=== PATIENT | female | born 1980 | race Caucasian/White ===

== ENCOUNTER 2016-05-22 08:24 | Inpatient (IN) ==
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
[2016-05-22 11:01] LABS: Basophils # 0.1 K/mcL (0.0-0.2); Basophils % 0.9 %; Eosinophils # 0.3 K/mcL (0.0-0.6); Eosinophils % 2.1 %; Hematocrit 37.4 % (35.3-44.9); Hemoglobin 12.5 g/dL (11.5-15.4); Immature Granulocytes % 0.5 % (0-4); Lymphocytes # 2.5 K/mcL (0.6-4.6); Lymphocytes % 19.4 %; Mean Corpuscular HGB Conc 33.4 g/dL (31.6-35.5); Mean Corpuscular Hemoglobin 31.6 pg (28.0-33.3); Mean Corpuscular Volume 94.4 fL (83.0-100.0); Mean Platelet Volume 9.1 fL (9.4-12.4); Monocytes # 0.9 K/mcL (0.0-1.3); Monocytes % 6.8 %; Neutrophils # 9.1 K/mcL (1.6-8.9); Platelet Count 306 K/mcL (140-400); Red Blood Count 3.96 M/mcL (3.82-4.97); Red Cell Distribution Width 12.6 % (11.5-14.5); Segmented Neutrophils % 70.3 %
[2016-05-22 11:17] LABS: BUN/Creatinine Ratio 16 (6-26); Blood Urea Nitrogen 10 mg/dL (7-20); Calcium 9.1 mg/dL (8.6-10.8); Carbon Dioxide 25 mEq/L (19-29); Chloride 110 mEq/L (98-109); Glucose 94 mg/dL (70-99); Osmolality,Calculated 291 (280-300); Potassium 4.2 mEq/L (3.5-4.5); Sodium 141 mEq/L (136-145); eGFR For African Americans > 60 (> 60); eGFR For Non-African Americans > 60 (> 60)
[2016-05-22 11:19] LABS: Acetaminophen < 1.0 mcg/mL (10-30); Ethanol < 10 mg/dL (0-10); Salicylate < 5.0 mg/dL (15-30)
[2016-05-22 11:38] LABS: Thyroid Stimulating Hormone 4.906 mcIU/mL (0.350-4.840)
[2016-05-22 12:13] LABS: Bilirubin,Urine Negative (Negative); Blood,Urine Negative (Negative); Clarity,Urine Clear (Clear); Color,Urine Yellow (Yellow); Glucose,Urine (UA) Normal (Normal); Ketones,Urine Negative (Negative); Leukocyte Esterase,Urine Negative (Negative); Nitrite,Urine Negative (Negative); PH,Urine 7.5 pH Units (5.0-8.0); Protein,Urine Negative (Neg-Trace); Specific Gravity,Urine 1.013 (1.010-1.025); Urobilinogen,Urine Normal (Normal)
[2016-05-22 12:17] LABS: Amphetamine Screen,Urine Negative ng/mL (Cutoff=1000); Barbiturate Screen,Urine Negative ng/mL (Cutoff=200); Benzodiazepines Screen,Urine Negative ng/mL (Cutoff=200); Cannabinoid Screen,Urine Negative ng/mL (Cutoff = 50); Cocaine Screen,Urine Negative ng/mL (Cutoff= 300); Opiate Screen,Urine Negative ng/mL (Cutoff=300); Phencyclidine Screen,Urine Negative ng/mL (Cutoff=25)
--- NOTE | 2016-05-22 14:02 | Emergency Department Note ---
Disposition Clinical Impression: Sprain of right shoulder joint Qualifiers: Encounter type: initial encounter Shoulder sprain type: unspecified sprain Qualified Code(s): S43.401A - Unspecified sprain of right shoulder joint, initial encounter Disposition: Still a Patient Condition: Good Instructions: Shoulder Sprain (ED) Additional Instructions: Take your medication as prescribed. Maintain the use of the sling is applied in the emergency department until you are able to follow up with the supervisory investigative specialist. Ice may be applied, 20 minutes on, 20 minutes off and time. He was call the supervisory investigative specialist office to schedule for the next available appointment. Contact information for their office can be found within this discharge packet. Prescriptions: Cyclobenzaprine HCl 10 mg PO TID #15 tablet Naproxen [Naprosyn] 500 mg PO BID PRN #20 tablet PRN Reason: Pain Referrals: NO,PCP [Primary Care Provider] - Forms: ED Satisfaction Letter General Adult HPI - General Chief complaint: ED Extremity Injury, Upper Stated complaint: R shoulder injury Time Seen by Provider: 05/22/16 08:41 Source: patient Limitations: no limitations - History of Present Illness Pain Scale: 5 - Related Data Previous Rx's Medication Instructions Recorded Cyclobenzaprine HCl 10 mg PO TID #15 tablet 05/22/16 Naproxen [Naprosyn] 500 mg PO BID PRN #20 tablet 05/22/16 Allergies Allergy/AdvReac Type Severity Reaction Status Date / Time aspirin Allergy Hives Verified 05/22/16 08:33 morphine AdvReac Vomiting Verified 05/22/16 08:33 sertraline [From Zoloft] AdvReac Vomiting Verified 05/22/16 08:33 tramadol AdvReac Vomiting Verified 05/22/16 08:33 Constitutional: Denies: fever, chills, weakness, weight change Cardiovascular: Denies: chest pain, palpitations, dyspnea on exertion, edema, syncope Respiratory: Denies: cough, dyspnea, wheezes, hemoptysis, stridor Gastrointestinal: Denies: abdominal pain, nausea, vomiting, diarrhea, constipation, hematemesis, melena, hematochezia Musculoskeletal: Reports: as per HPI, arthralgia (Right shoulder pain) Integumentary: Denies: rash, abrasion, lesions Neurological: Denies: headache, weakness, numbness, paresthesias, confusion, abnormal gait, vertigo Psychiatric: Denies: anxiety, depression, suicidal thoughts, homicidal thoughts , auditory hallucinations, visual hallucinations Endocrine: Denies: fatigue Past Medical History - Past Medical History Medical history: Reports: other Psychiatric history: Reports: no psych history SOCIAL WORK PROFESSOR history: Reports: no SOCIAL WORK PROFESSOR history - Social History Smoking Status: Current every day smoker Smokeless Tobacco Status: No Alcohol use: Reports: occasionally Drug use: Reports: none Physical Exam - General Limitations: no limitations General appearance: alert, in no apparent distress Course - Reevaluation(s) Reevaluation #1: I saw the patient with the nurse practitioner, Tesfaye. Patient initially came in for shoulder pain but then expressed some suicidal homicidal ideations. She is medically cleared. Psychiatry came and saw the patient and they are going to admit her to the hospital. Time: 14:01 Vital Signs Temperature 98.1 F 05/22/16 08:29 Pulse Rate 95 05/22/16 08:29 Respiratory Rate 16 05/22/16 08:29 Blood Pressure 113/78 05/22/16 08:29 O2 Sat by Pulse Oximetry 99 05/22/16 08:29 Temperature 98.1 F 05/22/16 08:29 Pulse Rate 95 05/22/16 08:29 Respiratory Rate 0 05/22/16 10:00 Blood Pressure 0/0 05/22/16 10:00 O2 Sat by Pulse Oximetry 99 05/22/16 08:29 Oxygen Delivery Oxygen Delivery Room Air Medical Decision Making - Lab Data Result diagrams: 05/22/16 10:55 05/22/16 10:55 Lab Results 05/22/16 05/22/16 05/22/16 Range/Units 10:55 10:55 12:00 WBC 12.9 H (4.3-11.1) K/mcL RBC 3.96 (3.82-4.97) M/mcL Hgb 12.5 (11.5-15.4) g/dL Hct 37.4 (35.3-44.9) % MCV 94.4 (83.0-100.0) fL MCH 31.6 (28.0-33.3) pg MCHC 33.4 (31.6-35.5) g/dL RDW 12.6 (11.5-14.5) % Plt Count 306 (140-400) K/mcL MPV 9.1 L (9.4-12.4) fL Immature Gran % 0.5 (0-4) % Seg Neutrophils % 70.3 % Lymphocytes % 19.4 % Monocytes % 6.8 % Eosinophils % 2.1 % Basophils % 0.9 % Neutrophils # 9.1 H (1.6-8.9) K/mcL Lymphocytes # 2.5 (0.6-4.6) K/mcL Monocytes # 0.9 (0.0-1.3) K/mcL Eosinophils # 0.3 (0.0-0.6) K/mcL Basophils # 0.1 (0.0-0.2) K/mcL Sodium 141 (136-145) mEq/L Potassium 4.2 (3.5-4.5) mEq/L Chloride 110 H (98-109) mEq/L Carbon Dioxide 25 (19-29) mEq/L BUN 10 (7-20) mg/dL Creatinine 0.63 (0.57-1.11) mg/dL Est GFR ( Amer) > 60 (> 60) Est GFR (Non-Af Amer) > 60 (> 60) BUN/Creatinine Ratio 16 (6-26) Glucose 94 (70-99) mg/dL Calculated Osmolality 291 (280-300) Calcium 9.1 (8.6-10.8) mg/dL TSH 4.906 H (0.350-4.840) mcIU/mL Urine Color Yellow (Yellow) Urine Clarity Clear (Clear) Urine pH 7.5 (5.0-8.0) pH Units Ur Specific [place] 1.013 (1.010-1.025) Urine Protein Negative (Neg-Trace) mg/dL Urine Glucose (UA) Normal (Normal) mg/dL Urine Ketones Negative (Negative) mg/dL Urine Blood Negative (Negative) Urine Nitrite Negative (Negative) Urine Bilirubin Negative (Negative) Urine Urobilinogen Normal (Normal) mg/dL Ur Leukocyte Esterase Negative (Negative) Urine Test (Negative) Salicylates < 5.0 L (15-30) mg/dL Urine Opiates Screen (Euqxcp=075) ng/mL Acetaminophen < 1.0 L (10-30) mcg/mL Ur Barbiturates Screen (Membaz=510) ng/mL Ur Phencyclidine Scrn (Cutoff=25) ng/mL Ur Amphetamines Screen (Rwtkus=6395) ng/mL U Benzodiazepines Scrn (Cozemc=875) ng/mL Urine Cocaine Screen (Cutoff= 300) ng/mL U Marijuana (THC) Screen (Cutoff = 50) ng/mL Ethyl Alcohol < 10 (0-10) mg/dL 05/22/16 05/22/16 Range/Units 12:00 12:00 WBC (4.3-11.1) K/mcL RBC (3.82-4.97) M/mcL Hgb (11.5-15.4) g/dL Hct (35.3-44.9) % MCV (83.0-100.0) fL MCH (28.0-33.3) pg MCHC (31.6-35.5) g/dL RDW (11.5-14.5) % Plt Count (140-400) K/mcL MPV (9.4-12.4) fL Immature Gran % (0-4) % Seg Neutrophils % % Lymphocytes % % Monocytes % % Eosinophils % % Basophils % % Neutrophils # (1.6-8.9) K/mcL Lymphocytes # (0.6-4.6) K/mcL Monocytes # (0.0-1.3) K/mcL Eosinophils # (0.0-0.6) K/mcL Basophils # (0.0-0.2) K/mcL Sodium (136-145) mEq/L Potassium (3.5-4.5) mEq/L Chloride (98-109) mEq/L Carbon Dioxide (19-29) mEq/L BUN (7-20) mg/dL Creatinine (0.57-1.11) mg/dL Est GFR ( Amer) (> 60) Est GFR (Non-Af Amer) (> 60) BUN/Creatinine Ratio (6-26) Glucose (70-99) mg/dL Calculated Osmolality (280-300) Calcium (8.6-10.8) mg/dL TSH (0.350-4.840) mcIU/mL Urine Color (Yellow) Urine Clarity (Clear) Urine pH (5.0-8.0) pH Units Ur Specific [place] (1.010-1.025) Urine Protein (Neg-Trace) mg/dL Urine Glucose (UA) (Normal) mg/dL Urine Ketones (Negative) mg/dL Urine Blood (Negative) Urine Nitrite (Negative) Urine Bilirubin (Negative) Urine Urobilinogen (Normal) mg/dL Ur Leukocyte Esterase (Negative) Urine Test Negative (Negative) Salicylates (15-30) mg/dL Urine Opiates Screen Negative (Otudnp=597) ng/mL Acetaminophen (10-30) mcg/mL Ur Barbiturates Screen Negative (Sebxnz=763) ng/mL Ur Phencyclidine Scrn Negative (Cutoff=25) ng/mL Ur Amphetamines Screen Negative (Ilrsjc=8431) ng/mL U Benzodiazepines Scrn Negative (Wmymss=582) ng/mL Urine Cocaine Screen Negative (Cutoff= 300) ng/mL U Marijuana (THC) Screen Negative (Cutoff = 50) ng/mL Ethyl Alcohol (0-10) mg/dL Attestation Statement - Attestation Attestation: I, Dr. Arce, examined this patient [id number] and my medical decision- making was reviewed with Tesfaye, nurse practitioner. I agree with the documented findings, disposition and treatment plan as described except to the extent set forth below. Please see my progress note for details.
[2016-05-22] MEDS ORDERED: hydrOXYzine pamoate 25 MG CAPSULE PO PRN (15:07)
[2016-05-22] MEDS ORDERED: traZODone 50 MG TABLET PO PRN (15:07)
[2016-05-22] MEDS ORDERED: diazePAM 10 MG TABLET PO PRN (15:16)
[2016-05-22] MEDS ORDERED: *HR* LORazepam 2 MG/ML VIAL IM PRN (18:26)
[2016-05-22] MEDS ORDERED: *HR* LORazepam 1 MG TABLET PO PRN (18:26)
[2016-05-22] MEDS ORDERED: Haloperidol Lactate 5 MG/ML VIAL IM PRN (18:26)
[2016-05-22] MEDS ORDERED: MOM Conc 10 ML UD.LIQ PO PRN (18:26)
[2016-05-22] MEDS ORDERED: Mag Hydrox/Al Hydrox/Simeth 30 ML UDC PO PRN (18:26)
[2016-05-22] MEDS: Acetaminophen 325 MG TABLET PO PRN (18:31)
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
[2016-05-23] MEDS: Acetaminophen 325 MG TABLET PO PRN (12:33)
[2016-05-23] MEDS: Mirtazapine 15 MG TABLET PO SCH (20:02)
--- NOTE | 2016-05-24 13:24 | Psychiatry Progress Note ---
Date of Encounter: 05/24/16 Time of Encounter: 12:00 Subjective Interval history: Patient seen today for follow-up. She continues to report depression. She has fleeting suicidal ideation with no plan. Patient states that she slept well last night but is very sleepy during the interview as well. She denies side effects of her medications. She denies signs of withdrawal from alcohol. Review of Systems Psychiatric: Reports: depression, anxiety, suicidal ideation, anhedonia, difficulty concentrating, hopelessness. Denies: abnormal sleep pattern, auditory hallucinations, visual hallucinations Objective: Exam Patient orientation: Yes Person, Yes Time, Yes Place Level of alertness: Sedated Patient appearance: Unkempt Behavior: cooperative Psychomotor activity: Normal Eye contact: Minimal Contact Mood description: Depressed Affect description: congruent with mood, blunted, dysphoric Speech pattern: Normal rate, Normal rhythm, Normal tone Speech volume: Normal Thought process: Intact Thought content: Yes Intact, Yes Suicidal ideation Perceptual disturbances: No Auditory hallucinations, No Visual hallucinations Judgment: Limited Insight: Minimal Results - Vital Signs Vital Signs: Temp Pulse Resp BP Pulse Ox 99.4 F 99 16 106/63 99 05/24/16 12:00 05/24/16 12:00 05/24/16 12:00 05/24/16 12:00 05/22/16 08:29 Assessment and Plan (1) Major depressive disorder, recurrent severe without psychotic features Current visit: Yes Status: Acute Plan: Continue hospitalization, Close observation, Suicide Precautions per unit protocol, Encourage participation in unit milieu, Group Therapy, Monitor sleep, Monitor appetite Additional Plan: Continue current medications for now. The patient continues to be sleepy throughout the day we will decrease dosages to see if this improves. Encourage appropriate sleep hygiene. She has not been given when necessary Valium. Risks, benefits, side effects, alternatives discussed w/pt: Yes Patient agreeable to treatment: Yes (2) Anxiety Current visit: Yes Status: Acute Plan: Continue hospitalization, Close observation, Suicide Precautions per unit protocol, Encourage participation in unit milieu, Group Therapy, Monitor sleep, Monitor appetite Additional Plan: Vistaril as needed. Risks, benefits, side effects, alternatives discussed w/pt: Yes Patient agreeable to treatment: Yes (3) Alcohol dependence Current visit: Yes Status: Acute Additional Plan: No withdrawal symptoms today. Patient has not required as necessary for withdrawal. Continue to monitor vitals. Risks, benefits, side effects, alternatives discussed w/pt: Yes Patient agreeable to treatment: Yes Qualifiers: Substance use status: uncomplicated Qualified Code(s): F10.20 - Alcohol dependence, uncomplicated (4) Methamphetamine abuse Current visit: Yes Status: Acute Risks, benefits, side effects, alternatives discussed w/pt: Yes Patient agreeable to treatment: Yes Consult Discharge Plan - Plan Referrals: NO,PCP [Primary Care Provider] -
[2016-05-24] MEDS: Mirtazapine 15 MG TABLET PO SCH (20:52)
[2016-05-24] MEDS: Acetaminophen 325 MG TABLET PO PRN (21:15)
--- NOTE | 2016-05-25 10:00 | Discharge Summary ---
Date of Encounter: 05/25/16 Time of Encounter: 09:00 Diagnosis - Discharge Diagnosis (1) Major depressive disorder, recurrent severe without psychotic features Priority: Primary Status: Acute (2) Anxiety Priority: Secondary Status: Acute (3) Alcohol dependence Priority: Secondary Status: Acute Qualifiers: Substance use status: uncomplicated Qualified Code(s): F10.20 - Alcohol dependence, uncomplicated (4) Methamphetamine abuse Priority: Secondary Status: Acute Medications - Discharge Medications Prescriptions: HydrOXYzine Pamoate 50 mg PO TID PRN #90 capsule PRN Reason: Anxiety Mirtazapine [Remeron] 15 mg PO HS #30 tablet Prazosin [Minipress] 3 mg PO HS #90 capsule Cyclobenzaprine HCl 10 mg PO TID #15 tablet 05/22/16 [Rx] Naproxen [Naprosyn] 500 mg PO BID PRN #20 tablet 05/22/16 [Rx] HydrOXYzine Pamoate 50 mg PO TID PRN #90 capsule 05/25/16 [Rx] Mirtazapine [Remeron] 15 mg PO HS #30 tablet 05/25/16 [Rx] Prazosin [Minipress] 3 mg PO HS #90 capsule 05/25/16 [Rx] Allergies aspirin Allergy (Verified 05/22/16 08:33) Hives adhesive tape Adverse Reaction (Verified 05/22/16 17:31) Blister morphine Adverse Reaction (Verified 05/22/16 08:33) Vomiting sertraline [From Zoloft] Adverse Reaction (Verified 05/22/16 08:33) Vomiting tramadol Adverse Reaction (Verified 05/22/16 08:33) Vomiting Provider Date of admission: 05/22/16 14:10 Primary care physician: PCP NO Consults: 05/22/16 15:33 Consult to Pastoral Services [CONS] Routine Comment: Discharging clinician: Aida Kilpatrick Assessment and Plan - Patient/Caregiver Discharge Instructions Activity: resume usual activities as tolerated Diet: regular diet - Follow [facility] 11:00 am (The above appointment is with Sun Davis to establish you as a client. You will also see Dr. Gibson, psychiatric prescriber, on 06/22/2016 at 10:15am. Please bring your insurance card and social security card. This appointment will last 2 hours. If you are unable to keep this appointment, 24 hour business notice of cancellation is expected. ) Functional capacity at discharge: independent ambulation Overall status at discharge: Stable Disposition: Home, Self-Care Hospital Course Hospital course: Ms. Quach is a 35 year old female with a history of severe depression and a recent suicide attempt by hanging who presented to the hospital initially with right shoulder pain. She then reported to staff that she was still having suicidal ideations. She was admitted to [facility] for psychiatric stabilization. Patient was incorporated into the therapeutic milieu and offer group and individual as well as recreational therapy. She was also offered psychoeducational materials and supportive therapy. She is placed on suicide precautions and close observation. Patient reports that she had been on prazosin started by [facility] and a previous admission last week. She also reports that she has been on trazodone in the past for sleep. Patient was placed on Remeron 15 mg by mouth daily at bedtime for mood stabilization/improvement in her depression as well as for sleep. She tolerated this medication well and denied side effects. Throughout the course of the hospital stay the patient's mood improved. She reports drinking heavily and she was monitored for alcohol withdrawal but did not have severe symptoms. Patient states that she can go and live with her mother on discharge. Patient began to deny suicidal ideations and was future oriented. She would like to continue her treatment as an outpatient. She is discharged in stable condition. Does patient wish to continue nicotine replacement upon disc: No - Time Spent with Patient Total time spent providing and/or coordinating discharge services: Less than 30 minutes Quality - Multiple Antipsychotics Patient discharged on 2 or more antipsychotic medications: No Procedures - Procedures Procedures: Medication Management, Crisis Stabilization, Supportive Therapy, Group Therapy, Psychoeducational Therapy Mental Status Exam - Mental Status Exam Patient orientation: Yes Person, Yes Time, Yes Place Level of alertness: Alert Patient appearance: Appropriate Behavior: calm, cooperative Psychomotor activity: Normal Eye contact: Maintains Eye Contact Mood description: Euthymic/stable Affect description: congruent with mood Speech pattern: Normal rate, Normal rhythm, Normal tone Speech Volume: Normal Thought process: Intact Thought Content: Yes Intact, No Suicidal ideation, No Homicidal ideation Perceptual Disturbances: No Reacting to internal stimuli, No Auditory hallucinations, No Visual hallucinations Judgment: Limited Insight: Partial
[2016-05-25 13:17] VITALS: BP 91/61
== END 2016-05-25 14:00 | disposition home or self-care (01) | DRG 751 ==
LOC: EMEROO 08:24 → 1ANU 14:10
PROVIDERS: ADMIT Student in an Organized Health Care Education/Training Program; ATTEND Student in an Organized Health Care Education/Training Program